=== PATIENT | female | born 1955 | race Caucasian/White ===

== ENCOUNTER 2017-04-11 12:57 | Outpatient (CLI) | payer OTHER ==
--- NOTE | 2017-04-11 16:15 | XRAY Report ---
THREE-VIEW BILATERAL KNEES: 04/11/2017 INDICATION: Pain. FINDINGS: AP, lateral, sunrise views of the bilateral knees demonstrate no evidence of fracture or dislocation. The joint spaces are preserved. No effusion is present. IMPRESSION: NORMAL BILATERAL KNEES. cc: Michael Whalen DO TD: 04/11/2017 16:14 cc: Michael Whalen DO
--- NOTE | 2017-04-12 11:32 | DEXA Report ---
DEXA SCAN: 04/11/2017 HISTORY: Postmenopausal. TECHNIQUE: Dual energy x-ray absorptiometry (DXA) was performed on a Simplee system. Regions measured are the AP spine, femoral neck, and, if needed, forearm. COMPARISON: None. In accordance with the International Society for Clinical Densitometry (ISCD) guidelines, data from previous exams may be reanalyzed using current recommendations and techniques. This is done to allow a more accurate basis for comparison with the current study. FINDINGS: The data for the lumbar spine is as follows: REGION BMD (g/cm/cm) T-SCORE Z-SCORE L1 0.996 -1.1 -0.1 L2 1.030 -1.4 -0.4 L3 1.108 -0.8 0.3 L4 1.088 -0.9 0.1 TOTAL 1.060 -1.0 0.0 NOTE: All evaluable vertebrae are used for classification. The data for the hip is as follows: REGION BMD (g/cm/cm) T-SCORE Z-SCORE Neck 0.950 -0.6 0.5 TOTAL 1.038 0.2 1.0 NOTE: The femoral neck or total proximal femur, whichever is lowest, is used for classification. IMPRESSION: THE WHO CLASSIFICATION BASED ON THE INTERNATIONAL REFERENCE STANDARD IS NORMAL. THE FRACTURE RISK IS NOT INCREASED. RECOMMENDATION: Patients with diagnosis of osteoporosis or osteopenia should have regular bone mineral density assessment. For those eligible for Medicare, routine testing is allowed once every 2 years. Testing frequency can be increased for patients who have rapidly progressing disease or for those who are receiving medical therapy to restore bone mass. COMMENT: World Health Organization (WHO) definitions for osteoporosis and osteopenia: NORMAL BMD: T-score at 1.0 or higher, fracture risk is low. OSTEOPENIA BMD: T-score between 1.0 and -2.5, fracture risk is increased. OSTEOPOROSIS BMD: T-score at 2.5 or lower, fracture risk high. National Osteoporosis Foundation recommends: 1. Obtain adequate dietary calcium (at least 1200 mg per day) and vitamin D (400 -800 international units per day). 2. Participate, as appropriate, in regular weightbearing and muscle- strengthening exercise. 3. Avoid tobacco use and reduce alcohol and caffeine intake. 4. For more detailed information see the website at www.NOF.org. MTDD
== END 2017-04-11 12:58 | disposition home or self-care (01) ==
LOC: DI 12:57
PROVIDERS: ATTEND Family Medicine
DX: M85.80 Other specified disorders of bone density and structure, unspecified site (principal); M25.562 Pain in left knee; M25.561 Pain in right knee; Z78.0 Asymptomatic menopausal state
CPT/HCPCS: 77080

== ENCOUNTER 2017-04-11 13:03 | Outpatient (CLI) | payer OTHER ==
--- NOTE | 2017-04-13 14:02 | Mammography Report ---
DIGITAL SCREENING MAMMOGRAM: 04/11/2017 CLINICAL INDICATION: A 62-year-old with history of benign left breast biopsy for screening. COMPARISON: The patient reports having had previous mammograms in [place], but films currently cannot be located for direct comparison. If records in your office indicate where the films were performed, we would be happy to try to obtain them for direct comparison. Otherwise, this will serve as a new baseline. TECHNIQUE: Routine CC and MLO projections of the breasts. FINDINGS: The breasts demonstrate scattered fibroglandular densities bilaterally. An intramammary lymph node is noted in the left upper outer quadrant. No suspicious masses, clustered microcalcifications, or regions of architectural distortion are identified. IMPRESSION: BENIGN FINDINGS. RECOMMENDATION: Routine annual screening unless otherwise clinically indicated. BIRADS CATEGORY 2 - benign findings. STANDARD QUALIFYING STATEMENTS: 1. This examination was reviewed with the aid of Computer-Aided Detection (CAD). 2. A negative or benign imaging report should not delay biopsy if clinically suspicious findings are present. Consider surgical consultation if warranted. More than 5% of cancers are not identified by imaging. 3. Dense breasts may obscure an underlying neoplasm. TD: 04/13/2017 14:02
== END 2017-04-11 13:04 | disposition home or self-care (01) ==
LOC: DI 13:03
PROVIDERS: ATTEND Family Medicine
DX: Z12.31 Encounter for screening mammogram for malignant neoplasm of breast (principal)
CPT/HCPCS: 77067